=== PATIENT | female | born 1980 | race African-American/Black ===

== ENCOUNTER 2020-10-14 10:50 | Outpatient (CLI) | payer OTHER | END 2020-10-14 10:51 | disposition home or self-care (01) | LOC: DTY/OP 10:50 | PROVIDERS: ATTEND Specialist | DX: Z01.818 Encounter for other preprocedural examination (principal); E66.01 Morbid (severe) obesity due to excess calories | CPT/HCPCS: 97802 ==

== ENCOUNTER 2020-10-25 12:51 | Outpatient (CLI) | payer OTHER | END 2020-10-25 12:52 | disposition home or self-care (01) | LOC: DTY/OP 12:51 | PROVIDERS: ATTEND Specialist | DX: Z01.818 Encounter for other preprocedural examination (principal); E66.01 Morbid (severe) obesity due to excess calories | CPT/HCPCS: 97802 ==